=== PATIENT | female | born 1945 | race Caucasian/White ===

== ENCOUNTER → 2024-03-19 15:06 | Outpatient (REF) | payer OTHER, SELFPAY | LOC: HWRAD 15:06 | DX: Z12.31 Encounter for screening mammogram for malignant neoplasm of breast (principal); M81.0 Age-related osteoporosis without current pathological fracture | CPT/HCPCS: 77063; 77067; 77080 ==

== ENCOUNTER → 2024-11-13 12:36 | Outpatient (REF) | payer OTHER, SELFPAY | LOC: PAVMRI 12:36 | PROVIDERS: ATTENDING PHYSICIAN Orthopaedic Surgery; FAMILY PHYSICIAN Internal Medicine | DX: M48.061 Spinal stenosis, lumbar region without neurogenic claudication (principal) | CPT/HCPCS: 72148 ==

== ENCOUNTER → 2025-05-19 13:03 | Outpatient (REF) | payer OTHER, SELFPAY | LOC: HWWDC 13:03 | PROVIDERS: ATTENDING PHYSICIAN Internal Medicine | DX: Z12.31 Encounter for screening mammogram for malignant neoplasm of breast (principal) | CPT/HCPCS: 77063; 77067 ==

== ENCOUNTER → 2025-05-26 15:53 | Outpatient (REF) | payer OTHER, SELFPAY | LOC: HWRAD 15:53 | PROVIDERS: ATTENDING PHYSICIAN Family Medicine | DX: M79.642 Pain in left hand (principal); M25.532 Pain in left wrist | CPT/HCPCS: 73110; 73130; 73140 ==

== ENCOUNTER 2025-05-27 17:37 | Emergency (ER) | payer OTHER, SELFPAY ==
[2025-05-27 17:38] VITALS: BP 149/76
[2025-05-27 20:35] VITALS: BP 148/70
--- NOTE | 2025-05-28 03:06 | ED.GENMED ---
History of Present Illness
General
Chief Complaint: Vascular Symptoms
Time Seen by Provider: 05/27/25 20:15
Nursing documentation reviewed up to this point in time: agreed with
History of Present Illness
History of Present Illness:
79-year-old female presents to the ER for evaluation of swelling in her right lower extremity which she noted this morning. Patient reports that she had seen her family doctor yesterday and had normal evaluation. She and her went out for
dinner last night and she believes there was a lot of salt on the potatoes that she ate. Patient denies shortness of breath or chest pain. She denies any change in p.o. water intake. She denies any change in urine output. She reports feeling
well other than tight sensation to her right lower extremity due to swelling. No fevers. No abdominal distention. No prior personal history of venous thromboembolic disease.
Past History
Past History
ED Past Medical History: None
ED Past Surgical History: Gynecological and Orthopedic (b/l hip)
Social History
Tobacco: Non-smoker
Alcohol: None
Drug: None
Review of Systems
Review of Systems
Allergies reviewed?: Yes
Phy Exam
Physical Exam
Physical Exam:
Patient is awake, alert, appears in no acute distress, head is normocephalic atraumatic, moving herself easily on the stretcher and around the room without assistance, steady gait, heart regular rate and rhythm not murmurs or ectopy, lungs are clear
to auscultation without wheezes rales or rhonchi, abdomen is soft and nontender, right lower extremity with 2+ edema to the knees, no erythema, left lower extremity with trace edema to the ankle, 2+ DP pulses present symmetric, brisk cap refill
present to the toes, GCS is 15
Course
Orders/Labs/Results
Orders:
Orders
05/27/25 17:43
Periph Venous Lwr Ext Rt US [US Periph Venous LOWER Ext RT] Urgent
Comment:
Reason For Exam: calf pain and swelling
Right lower extremity ultrasound is negative
Vital Signs
Initial and Last Documented VS:
Initial Vital Signs
Temp Pulse Resp BP Pulse Ox
98.3 F 70 18 149/76 97
05/27/25 17:38 05/27/25 17:38 05/27/25 17:38 05/27/25 17:38 05/27/25 17:38
Last Documented Vital Signs
Temp Pulse Resp BP Pulse Ox
98.3 F 64 16 148/70 95
05/27/25 17:38 05/27/25 20:35 05/27/25 20:35 05/27/25 20:35 05/27/25 20:35
MDM/Problems Addressed
Differential Diagnosis Includes:
Differential diagnosis to consider but not limited to congestive heart failure, venous thromboembolic disease, excess sodium intake, dependent edema along with other etiologies considered
Chronic conditions affecting care:
Advanced age, diabetes, hypertension
*Radiology
Radiology exam reviewed: radiology read reviewed
*Pulse Oximetry
SaO2: 95
Oxygen Mode of Delivery: Room air
Patient hypoxic: no
*Critical Care Note
Total Time (30-74mins, 75-104mins- exclusive of procedures): Not Applicable
Update Note
Update Note:
Patient appears in no acute distress at time of evaluation. I discussed with patient very reassuring ultrasound without evidence for DVT. I discussed with patient need to continue elevating her leg to avoid excess salt intake. I discussed with
patient benefit of follow-up with primary care physician for reevaluation and further care. She and additional family present at bedside expressed understanding of discharge plan and had no questions prior to leaving the department
ED Attending Note
-
Portions of this chart may have been created with voice recognition software.� Occasional wrong word or��sound alike� substitutions may have occurred due to the inherent limitations of voice recognition software.
Discharge Plan
Departure
Patient Disposition: Home (Routine Discharge)
Date of Disposition: 05/27/25
Time of Disposition: 20:22
Patient with high blood pressure during this ER visit?: Yes
Discharge Problem:
Leg swelling
Instructions: Swelling, BLOOD PRESSURE
Prescriptions:
No Action
levothyroxine 100 MCG tablet
100 mcg PO DAILY
propranolol 10 MG tablet
10 mg PO TID
tolterodine 2 mg Capsule,Extended Release 24hr
2 mg PO DAILY
metformin 500 mg Tablet
500 mg PO DAILY
Patient Comments:
09/25/23 take with meals
amlodipine 10 mg Tablet
10 mg PO DAILY
coenzyme Q10 [CoQ-10] 100 mg Capsule
100 mg PO DAILY
cholecalciferol (vitamin D3) [Vitamin D3] 50 mcg (2,000 unit) Tablet
50 mcg PO DAILY
Medical Marijuana
1 tab PO DAILYPRN PRN (Reason: anxiety)
atorvastatin [Lipitor] 20 mg tablet
20 mg PO HS Qty: 30 0RF
levetiracetam [Keppra] 500 mg tablet
500 mg PO BID Qty: 60 0RF
Activity Restrictions/Additional Instructions:
Please try to follow a low-salt diet over the next several days. When you are not walking please elevate your legs to help reduce swelling. Please follow-up with your doctor in 1 week for reevaluation as you may need repeat ultrasound if your legs
are still swollen. Return to the ER for any concerns including but not limited to shortness of breath, pain, fever or redness in your legs
Interventions
Interventions:
*Risk Screen - Suicide Last Done: 05/27/25 17:38
*General Assessment Last Done: 05/27/25 17:38
*Nursing Disposition Last Done: 05/27/25 20:36
ED- Cardiac Assessment Last Done: 05/27/25 20:00
ED- Pulmonary Assessment Last Done: 05/27/25 20:00
ED-Peripheral Vascular Assessment Last Done: 05/27/25 20:00
ED-Skin Assessment Last Done: 05/27/25 20:00
Discharge Date and Time
Discharge Date/Time: 05/27/25 20:36
Print Language: TAJIK
== END 2025-05-27 20:36 | disposition home or self-care (01) ==
LOC: EMR 17:37
PROVIDERS: EMERGENCY PHYSICIAN Emergency Medicine; FAMILY PHYSICIAN Internal Medicine
DX: R22.41 Localized swelling, mass and lump, right lower limb (principal); E11.9 Type 2 diabetes mellitus without complications; I10 Essential (primary) hypertension; Z79.84 Long term (current) use of oral hypoglycemic drugs
CPT/HCPCS: 99284; 93971

== ENCOUNTER → 2025-06-23 14:22 | Outpatient (REF) | payer OTHER, SELFPAY | LOC: RAD 14:22 | PROVIDERS: ATTENDING PHYSICIAN Family Medicine; FAMILY PHYSICIAN Internal Medicine | DX: M79.604 Pain in right leg (principal); R22.41 Localized swelling, mass and lump, right lower limb | CPT/HCPCS: 93971 ==

== ENCOUNTER 2025-10-03 16:50 | Emergency (ER) | payer OTHER, SELFPAY ==
[2025-10-03 16:52] VITALS: BP 181/79
[2025-10-03 18:33] LABS: Hematocrit 38.2 % (37.0-47.0); Hemoglobin 13.1 g/dL (12.0-16.0); Mean Corp Hgb Conc. 34.3 g/dL (33.0-37.0); Mean Corpuscular Volume 87.8 fL (81.0-99.0); Nucleated Red Blood Cells % 0 %; Platelet Count 206 10^3/uL (130-400); Red Cell Dist. Width 13.2 % (11.5-14.5)
[2025-10-03 18:49] LABS: ALT (SGPT) 23 U/L (0-35); AST (SGOT) 23 U/L (14-36); Albumin 4.2 g/dl (3.5-5.0); Alkaline Phosphatase 81 U/L (38-126); Blood Urea Nitrogen 17 mg/dl (7-17); Calcium 9.7 mg/dl (8.4-10.2); Carbon Dioxide 28 mmol/L (22-30); Chloride 107 mmol/L (98-107); Glucose 99 mg/dl (70-99); Potassium 3.7 mmol/L (3.5-5.1); Sodium 140 mmol/L (135-145); Total Protein 7.2 g/dl (6.3-8.2); eGFR > 60.00
--- NOTE | 2025-10-03 19:41 | ED.GENMED ---
History of Present Illness
General
Chief Complaint: Skin Problem
Source: patient and spouse
Time Seen by Provider: 10/03/25 17:52
History of Present Illness
History of Present Illness:
Note:
CHIEF COMPLAINT(S)
Red rash on legs.
HISTORY OF PRESENT ILLNESS
The patient is an 80-year-old female who presents with a red rash on her legs, noted approximately three or four days ago. She describes the rash as sudden in onset. The rash is not associated with pain, and she reports only mild itching localized
to the back. The patient recalls being recently treated with an antibiotic, Cephalexin (Keflex), 500 mg, for a urinary tract infection, which she completed at the beginning of August. She reports no current symptoms of a urinary tract infection,
such as pain or burning. However, she mentions experiencing chronic diarrhea episodes 'every third day,' which has become more frequent and sometimes results in watery stools. She denies any new lotions, antibiotics, or soaps before the rash onset,
and reports no swelling in the legs. The patient occasionally uses acetaminophen (Tylenol) for pain.
ADDITIONAL HISTORY OBTAINED FROM SOURCES OTHER THAN THE PATIENT
Per a family member, the patient contacted their primary care physician due to diarrhea and was prescribed the recent antibiotics.
CHRONIC MEDICAL CONDITIONS SIGNIFICANTLY AFFECTING CARE
The patient has a past medical history of diabetes, which was being monitored as she suspected hyperglycemia, leading to her visit to urgent care that resulted in the discovery of the urinary tract infection.
SOCIAL HISTORY
The patient has been noted to have occasional complaints related to her diabetic management, with suspected episodes of hyperglycemia.
ALLERGIES
The patient reports an allergy to Bactrim, describing an adverse reaction that left her feeling unwell for two days.
REVIEW OF SYSTEMS
- Skin: Red rash on legs; mildly itchy back.
- Gastrointestinal: Chronic episodes of diarrhea.
- Urinary: No pain, burning, or urinary symptoms post-treatment for urinary tract infection.
PHYSICAL EXAM
General: Alert, no acute distress.
Skin: Presence of petechiae noted on bilateral lower extremities between the knee and ankle, anteriorly, mild in nature. No edema observed. Otherwise warm and dry skin.
Cardiovascular: Normal peripheral perfusion, pulses are normal to touch in bilateral feet.
Gastrointestinal: Soft, non-distended abdomen.
Musculoskeletal: Normal range of motion and strength.
PROBLEM LIST
Acute Problems:
- Red rash on legs with petechiae
- Episode of diarrhea
Chronic Problems:
- Diabetes mellitus
PLAN
- Perform laboratory tests to evaluate blood counts and platelet levels, particularly due to recent antibiotic use, to ensure no significant changes have occurred.
- Monitor for potential adverse reactions related to medications, especially considering recent antibiotic treatment.
- Educate patient on the importance of monitoring her skin changes and to report any new symptoms or progression of the rash.
DIFFERENTIAL DIAGNOSIS
The Differential Diagnosis includes, in no particular order and is not limited to:
1. Drug-induced hypersensitivity vasculitis
2. Idiopathic thrombocytopenic purpura
3. Dermatologic manifestations of diabetes
4. Contact dermatitis
5. Systemic lupus erythematosus
6. Leukocytoclastic vasculitis
7. Henoch-Ami�nlein purpura
8. Acute cutaneous drug reaction
9. Viral exanthem
10. Thrombocytopenia associated with systemic infection
Disposition:
SUMMARY OF ENCOUNTER
The patient is an 80-year-old female presenting with a sudden onset red rash on her legs, possibly related to recent antibiotic use (cephalexin) for a urinary tract infection. Evaluated in the emergency department, she exhibits mild itching but no
pain or swelling. After examination and review of laboratory tests, the rash between the knees and ankles is consistent with petechiae. Lab results, including CBC and CMP, are normal, and no significant systemic or vascular issues are identified.
The clinical assessment suggests a hypersensitivity vasculitis, likely drug-induced, without indication for immediate treatment. Skin symptoms are expected to resolve spontaneously; however, further evaluation by her primary care physician or
media director is recommended if symptoms persist or worsen.
ASSESSMENT
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
PLAN
Monitor symptoms for resolution. If the rash persists or worsens, further evaluation for other causes of vasculitis or hypersensitivity reactions will be necessary. The patient is instructed to follow up with her primary care provider or a
media director for further evaluation if needed.
INDEPENDENT REVIEW OF LABS AND INTERPRETATION OF TESTS
My independent review of CBC indicates normal platelet levels. My independent review of CMP indicates normal findings.
FOLLOW-UP INSTRUCTIONS
The patient should follow up with her primary care physician or a payment specialist if symptoms persist or worsen.
MEDICAL DECISION MAKING
- Chronic conditions affecting care: Diabetes mellitus.
- Differential Diagnosis:
1. Drug-induced hypersensitivity vasculitis
2. Idiopathic thrombocytopenic purpura
3. Dermatologic manifestations of diabetes
4. Contact dermatitis
5. Systemic lupus erythematosus
6. Leukocytoclastic vasculitis
7. Henoch-Ami�nlein purpura
8. Acute cutaneous drug reaction
9. Viral exanthem
10. Thrombocytopenia associated with systemic infection
- Data:
Category 1:
The following laboratory tests were ordered and reviewed: CBC (normal platelet levels), CMP (normal).
Category 2:
Input from a family member regarding patient�s recent antibiotic use was taken into consideration.
-Risk:
Consideration of Admission/Observation: Escalation of care including admission/observation was considered given the complexity and risk of the patients presenting complaint, exam findings, and/or their underlying comorbidities. However, ultimately,
I feel the patient is safe for outpatient management with close follow-up. Reasoning: Work-up reassuring, does not reveal any acute life/organ threatening processes, patients symptoms well controlled upon reevaluation, reexamination is reassuring,
vitals are stable, patient agreeable with discharge, reliable for follow-up.
DIAGNOSIS
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
Past History
Past History
ED Past Medical History: None
ED Past Surgical History: Gynecological and Orthopedic (b/l hip)
Social History
Tobacco: Non-smoker
Alcohol: None
Drug: None
Phy Exam
Physical Exam
Physical Exam:
.
Course
Orders/Labs/Results
Orders:
Orders
10/03/25 18:27
Complete Blood Count/With Diff Urgent
Comprehensive Metabolic Panel Urgent
10/03/25 18:27
10/03/25 18:27
Vital Signs
Initial and Last Documented VS:
Initial Vital Signs
Temp Pulse Resp BP Pulse Ox
97.4 F 70 16 181/79 98
10/03/25 16:52 10/03/25 16:52 10/03/25 16:52 10/03/25 16:52 10/03/25 16:52
Last Documented Vital Signs
Temp Pulse Resp BP Pulse Ox
97.4 F 70 16 181/79 98
10/03/25 16:52 10/03/25 16:52 10/03/25 18:29 10/03/25 16:52 10/03/25 19:47
*Pulse Oximetry
SaO2: 98
Oxygen Mode of Delivery: Room air
Patient hypoxic: no
*Critical Care Note
Total Time (30-74mins, 75-104mins- exclusive of procedures): Not Applicable
ED Attending Note
-
Portions of this chart may have been created with voice recognition software.� Occasional wrong word or��sound alike� substitutions may have occurred due to the inherent limitations of voice recognition software.
Discharge Plan
Departure
Patient Disposition: Home (Routine Discharge)
Date of Disposition: 10/03/25
Time of Disposition: 19:43
Patient with high blood pressure during this ER visit?: Yes
Discharge Problem:
Petechial rash, hypersensitivity vasculitis
Instructions: Skin Rash (DC), BLOOD PRESSURE
Prescriptions:
No Action
levothyroxine 100 MCG tablet
100 mcg PO DAILY
propranolol 10 MG tablet
10 mg PO TID
tolterodine 2 mg Capsule,Extended Release 24hr
2 mg PO DAILY
metformin 500 mg Tablet
500 mg PO DAILY
Patient Comments:
09/25/23 take with meals
amlodipine 10 mg Tablet
10 mg PO DAILY
coenzyme Q10 [CoQ-10] 100 mg Capsule
100 mg PO DAILY
cholecalciferol (vitamin D3) [Vitamin D3] 50 mcg (2,000 unit) Tablet
50 mcg PO DAILY
Medical Marijuana
1 tab PO DAILYPRN PRN (Reason: anxiety)
atorvastatin [Lipitor] 20 mg tablet
20 mg PO HS Qty: 30 0RF
levetiracetam [Keppra] 500 mg tablet
500 mg PO BID Qty: 60 0RF
Referrals:
Ce Hester MD [Family Provider, Internal Medicine]
Activity Restrictions/Additional Instructions:
Return immediately for fevers, vomiting, body aches, joint pain, worsening rash concerns. Please see your doctor next 7 days for follow-up if symptoms persist as further workup may be most.
Interventions
Interventions:
*Risk Screen - Suicide Last Done: 10/03/25 18:29
*General Assessment Last Done: 10/03/25 18:29
*Neglect/Abuse Screening Last Done: 10/03/25 18:29
*ED COVID-19 Vaccine History Last Done: 10/03/25 18:29
*ED Influenza Vaccine History Last Done: 10/03/25 18:29
[facility] Risk Assessment Tool Last Done: 10/03/25 18:33
*Nursing Disposition Last Done: 10/03/25 20:06
ED-Skin Assessment Last Done: 10/03/25 18:29
Discharge Date and Time
Discharge Date/Time: 10/03/25 20:07
Print Language: WELSH
== END 2025-10-03 20:07 | disposition home or self-care (01) ==
LOC: EMR 16:50
PROVIDERS: EMERGENCY PHYSICIAN Emergency Medicine; FAMILY PHYSICIAN Internal Medicine
DX: R23.3 Spontaneous ecchymoses (principal); I77.6 Arteritis, unspecified; E11.9 Type 2 diabetes mellitus without complications
CPT/HCPCS: 99283; 80053; 85025